=== PATIENT | female | born 1935 | race Caucasian/White ===

== ENCOUNTER → 2022-04-13 | Outpatient (CLI) | payer MEDICARE ==
[~2022-04-13] MED LIST: ATEN100T PO; CHLO125TA PO; COUM2.5T17 PO; HYDR-2541 PO; INDO-16 PO; PERC5TAB12 PO; PRAV80TA2 PO; TYLE325T5 PO; VALS1TAB67 PO
[2022-04-13 18:42] LABS: FREE T4 2.87 NG/DL (0.89-1.76); THYROID STIMULATING HORMONE 0.008 uIU/ML (0.55-4.78)
== END ==
LOC: M PLALAB 14:35
PROVIDERS: ATTEND Internal Medicine Endocrinology, Diabetes & Metabolism
DX: E05.00 Thyrotoxicosis with diffuse goiter without thyrotoxic crisis or storm (principal)